=== PATIENT | female | born 1940 | race Caucasian/White ===

== ENCOUNTER → 2022-09-08 | Outpatient (CLI) | payer MEDICARE, BC ==
--- NOTE | 2022-09-08 16:19 | MR ---
EXAMINATION TYPE: MR brain wo con DATE OF EXAM: 09/08/2022 COMPARISON: NONE HISTORY: Memory loss. TECHNIQUE: Multiplanar, multisequence imaging of the brain and brainstem is performed without IV cont rast. FINDINGS: Diffusion weighted images demonstrate no evidence of a recent infarct or other diffusion abnormality. There is mild to moderate ventricular and sulcal prominence. There are scattered foci of T2 hyperinte nsity seen throughout the white matter bilaterally. Approximately 40-50 scattered lesions are seen. L esions are nonspecific in appearance and distribution. Midline structures demonstrate empty sella morphology. The craniocervical junction appears within no rmal limits. Normal vascular flow voids are present. The visualized sinuses are clear and the globes are intact. IMPRESSION: Mild to moderate diffuse cerebral atrophy and moderate chronic small vessel ischemic mittal ge.
== END | disposition home or self-care (01) ==
LOC: RADMRIMAIN 14:24
PROVIDERS: ATTEND Psychiatry & Neurology Neurology
DX: I67.82 Cerebral ischemia (principal); G31.9 Degenerative disease of nervous system, unspecified
CPT/HCPCS: 70551; 82306; 82607; 84207

== ENCOUNTER 2024-08-25 21:54 | Emergency (ER) | payer MEDICARE, BC ==
[2024-08-25 22:00] VITALS: TEMP 97.9
--- NOTE | 2024-08-25 22:14 | ED ---
Abdominal Pain HPI - General Chief Complaint: Urogenital Stated Complaint: pelvic pain Time Seen by Provider: 08/25/24 22:13 Source: patient, family, RN notes reviewed, old records reviewed Mode of arrival: wheelchair Limitations: no limitations, altered mental status, physical limitation - History of Present Illness Initial Comments: This is an 84 female with dementia. Patient presents today for evaluation abdominal pain has been telling failure members and complaining about abdominal pain for a day or 2 with difficult bowel movements. They are concerned for patient's inability to have a bowel movement and she is complaining of abdominal pain. No recent fevers nausea or vomiting noted. MD Complaint: abdominal pain -: days(s) Location: suprapubic Radiation: suprapubic Migration to: suprapubic Severity: moderate Severity scale (1-10): 5 Quality: aching Consistency: constant Improves With: nothing Worsens With: nothing Associated Symptoms: constipation Treatments Prior to Arrival: other - Related Data Allergies Allergy/AdvReac Type Severity Reaction Status Date / Time No Known Allergies Allergy Verified 08/25/24 22:00 Review of Systems ROS Statement: Those systems with pertinent positive or pertinent negative responses have been documented in the HPI. ROS Other: All systems not noted in ROS Statement are negative. Past Medical History Past Medical History: Dementia History of Any Multi-Drug Resistant Organisms: None Reported Past Surgical History: No Surgical Hx Reported Past Psychological History: No Psychological Hx Reported Smoking Status: Never smoker Past Alcohol Use History: None Reported Past Drug Use History: None Reported General Exam Limitations: no limitations General appearance: alert, in no apparent distress Head exam: Present: atraumatic, normocephalic, normal inspection Eye exam: Present: normal appearance, PERRL, EOMI. Absent: scleral icterus, conjunctival injection, periorbital swelling ENT exam: Present: normal exam, mucous membranes moist Neck exam: Present: normal inspection. Absent: tenderness, meningismus, lymphadenopathy Respiratory exam: Present: normal lung sounds bilaterally. Absent: respiratory distress, wheezes, rales, rhonchi, stridor Cardiovascular Exam: Present: regular rate, normal rhythm, normal heart sounds. Absent: systolic murmur, diastolic murmur, rubs, gallop, clicks GI/Abdominal exam: Present: soft, normal bowel sounds. Absent: distended, tenderness, guarding, rebound, rigid Extremities exam: Present: normal inspection, full ROM, normal capillary refill. Absent: tenderness, pedal edema, joint swelling, calf tenderness Back exam: Present: normal inspection Neurological exam: Present: alert, oriented X3, CN II-XII intact Psychiatric exam: Present: normal affect, normal mood Skin exam: Present: warm, dry, intact, normal color. Absent: rash Course Vital Signs 08/25/24 08/26/24 21:56 01:11 Temperature 97.9 F Pulse Rate 80 72 Respiratory 18 16 Rate Blood Pressure 173/95 161/83 O2 Sat by Pulse 98 95 Oximetry - Reevaluation(s) Reevaluation #1: 08/26/24 00:48 Medical records reviewed Reevaluation #2: 08/26/24 00:48 Patient has adequate bowel movement here in the ER Reevaluation #3: 08/26/24 00:48 Patient informed of results questions answered Reevaluation #4: Was pt. sent in by a medical professional or institution (, PA, BUSINESS OPERATIONS COORDINATOR, urgent care, hospital, or correction...) When possible be specific @ -no Did you speak to anyone other than the patient for history (EMS, parent, family, police, friend...)? What history was obtained from this source @ -no Did you review nursing and triage notes (agree or disagree)? Why? @ -agree Are old charts reviewed (outside hosp., previous admission, EMS record, old EKG, old radiological studies, urgent care reports/EKG's, correction records)? Report findings @ -yes Differential Diagnosis (chest pain, altered mental status, abdominal pain women, abdominal pain men, vaginal bleeding, weakness, fever, dyspnea, syncope, headache, dizziness, GI bleed, back pain, seizure, CVA, palpatations, mental health, musculoskeletal)? @ -prior EKG interpreted by me (3pts min.). @ -no X-rays interpreted by me (1pt min.). @ -no CT interpreted by me (1pt min.). @ -Yes positive fecal retention U/S interpreted by me (1pt. min.). @ -no What testing was considered but not performed or refused? (CT, X-rays, U/S, labs)? Why? @ -none What meds were considered but not given or refused? Why? @ -none Did you discuss the management of the patient with other professionals (professionals i.e. , PA, BUSINESS OPERATIONS COORDINATOR, lab, RT, psych nurse, social welfare research worker, proof inspector, teacher, airline pilot/first officer, shoe caser)? Give summary @ -no Was smoking cessation discussed for >3mins.? @ -no Was critical care preformed (if so, how long)? @ -no Were there social determinants of health that impacted care today? How? (Homelessness, low income, unemployed, alcoholism, drug addiction, transportation, low edu. Level, literacy, decrease access to med. care, senior care, rehab)? @ -none Was there de-escalation of care discussed even if they declined (Discuss DNR or withdrawal of care, Hospice)? DNR status @ -no What co-morbidities impacted this encounter? (DM, HTN, Smoking, COPD, CAD, Cancer, CVA, ARF, Chemo, Hep., AIDS, mental health diagnosis, sleep apnea, morbid obesity)? @ -none Was patient admitted / discharged? Hospital course, mention meds given and route, prescriptions, significant lab abnormalities, going to OR and other pertinent info. @ - 84 female to ER for evaluation of suprapubic and abdominal pain mild fecal retention given bowel regimen here in the ER has bowel movement here in the emergency department and can be discharged home Discharge Undiagnosed new problem with uncertain prognosis? @ -no Drug Therapy requiring intensive monitoring for toxicity (Heparin, Nitro, Insulin, Cardizem)? @ -no Were any procedures done? @ -no Diagnosis/symptom? @ -constipation fecal retention Acute, or Chronic, or Acute on Chronic? @ -Acute Uncomplicated (without systemic symptoms) or Complicated (systemic symptoms)? @ -Complicated Side effects of treatment? @ -no Exacerbation, Progression, or Severe Exacerbation? @ -exacerbation Poses a threat to life or bodily function? How? (Chest pain, [place], [place], pneumonia, PE, COPD, DKA, ARF, appy, cholecystitis, CVA, Diverticulitis, Homicidal, Suicidal, threat to staff... and all critical care pts) @ -yes yes extremes of age Reevaluation #5: Differential Abdominal Pain Women: Appendicitis, Cholecystitis, diverticulosis, ischemic bowel, pancreatitis, hepatitis, UTI, gastroenteritis, AAA, incarcerated hernia, bowel obstruction, constipation, inflammatory bowel, hepatitis, peptic ulcer disease, splenic infarction, perforated viscus, vulvitis, ovarian torsion, PID, kidney stone, placenta abruption, this is not meant to be an all-inclusive list Medical Decision Making - Medical Decision Making 84 female to ER for evaluation of suprapubic and abdominal pain mild fecal retention given bowel regimen here in the ER has bowel movement here in the emergency department and can be discharged home - Radiology Data Radiology results: report reviewed (CT abdomen pelvis shows mild fecal retention), image reviewed Disposition Clinical Impression: Constipation, Fecal impaction in rectum Disposition: HOME SELF-CARE Condition: Good Instructions (If sedation given, give patient instructions): Constipation (ED), Obstipation (ED), Fleet Enema (ED) Is patient prescribed a controlled substance at d/c from ED?: No Referrals: Ethel Abraham PAC [REFERRING] - 1-2 days Time of Disposition: 00:30
[2024-08-26] MEDS: SENNOSIDES-DOCUSATE SODIUM 1 EACH TAB PO STA (00:20)
[2024-08-26] MEDS: GLYCERIN ADULT SUPPOSITORY 1 EACH RECTAL STA (01:04)
[2024-08-26] MEDS: NA PHOS,M-B/NA PHOS,DI-BA 133 ML ENEMA RECTAL ONE (01:11)
[2024-08-26 01:13] VITALS: BP 161/83; PULSE 72; RESP 16
--- NOTE | 2024-08-26 01:46 | CT ---
EXAM: CT Abdomen and Pelvis Without Intravenous Contrast CLINICAL HISTORY: ITS.REASON CT Reason: pain TECHNIQUE: Axial computed tomography images of the abdomen and pelvis without intravenous contrast. CTDI is 9.6 mGy and DLP is 511 mGy-cm. This CT exam was performed using one or more of the following dose reduction techniques: automated exposure control, adjustment of the mA and/or kV according to patient size, and/or use of iterative reconstruction technique. COMPARISON: No relevant prior studies available. FINDINGS: Lung bases: Unremarkable. No mass. No consolidation. Mediastinum: Mild-moderate hiatal hernia. ABDOMEN: Liver: Unremarkable. Gallbladder and bile ducts: Unremarkable. No calcified stones. No ductal dilation. Pancreas: Unremarkable. No ductal dilation. Spleen: Unremarkable. No splenomegaly. Adrenals: Unremarkable. No mass. Kidneys and ureters: Unremarkable. No obstructing stones. No hydronephrosis. Stomach and bowel: Mild fecal retention, correlate for constipation. Diverticulosis, without acute diverticulitis. No small bowel obstruction. No free intraperitoneal air. PELVIS: Appendix: No findings to suggest acute appendicitis. Bladder: Unremarkable. No stones. Reproductive: Hysterectomy. ABDOMEN and PELVIS: Intraperitoneal space: Unremarkable. No free air. No significant fluid collection. Bones/joints: Degenerative changes of the spine. No acute fracture. No dislocation. Grade 1 anterolisthesis of L5 on S1. No pars defects. Soft tissues: Unremarkable. Vasculature: Atherosclerotic changes of the aorta. No abdominal aortic aneurysm. Lymph nodes: Unremarkable. No enlarged lymph nodes. IMPRESSION: 1. Mild-moderate hiatal hernia. 2. Mild fecal retention, correlate for constipation. 3. Hysterectomy. 4. Diverticulosis, without acute diverticulitis. No small bowel obstruction. No free intraperitoneal air.
== END 2024-08-26 01:13 | disposition home or self-care (01) ==
LOC: EC 21:54
DX: K56.41 Fecal impaction (principal)
CPT/HCPCS: 74176; 99284

== ENCOUNTER 2024-10-09 09:45 | Emergency (ER) | payer MEDICARE, BC ==
[2024-10-09 09:50] VITALS: RESP 18
--- NOTE | 2024-10-09 10:04 | ED ---
General Adult HPI - General Chief complaint: Weakness Stated complaint: Weakness Time Seen by Provider: 10/09/24 09:47 Source: patient, EMS, RN notes reviewed Mode of arrival: EMS Limitations: no limitations - History of Present Illness Initial comments: Patient is a 84-year-old female present to the emergency department with family with concerns for weakness. Symptoms have been present the past 3 days. Decreased appetite. Weak all over, patient does have some discomfort left hip and lower back however does have chronic lower back problems. Patient has been slightly more confused than normal. Patient has had several falls. - Related Data Home Medications Medication Instructions Recorded Confirmed Donepezil [Aricept] 10 mg PO DAILY 10/09/24 10/09/24 Ketoconazole 2% Cream [Nizoral 2%] 1 applic TOPICAL BID PRN 10/09/24 10/09/24 Memantine [Namenda] 10 mg PO DAILY 10/09/24 10/09/24 Allergies Allergy/AdvReac Type Severity Reaction Status Date / Time No Known Allergies Allergy Verified 10/09/24 10:44 Review of Systems ROS Statement: Those systems with pertinent positive or pertinent negative responses have been documented in the HPI. ROS Other: All systems not noted in ROS Statement are negative. Constitutional: Denies: fever Eyes: Denies: eye pain ENT: Denies: ear pain Respiratory: Denies: cough Cardiovascular: Denies: chest pain Endocrine: Reports: fatigue Gastrointestinal: Denies: abdominal pain Musculoskeletal: Reports: as per HPI, back pain Skin: Denies: rash Neurological: Reports: as per HPI, weakness. Denies: headache Past Medical History Past Medical History: Dementia History of Any Multi-Drug Resistant Organisms: None Reported Past Surgical History: No Surgical Hx Reported Past Psychological History: No Psychological Hx Reported Smoking Status: Never smoker Past Alcohol Use History: None Reported Past Drug Use History: None Reported General Exam Limitations: no limitations General appearance: alert, in no apparent distress Head exam: Present: normocephalic Eye exam: Present: normal appearance, PERRL ENT exam: Present: normal oropharynx Neck exam: Present: normal inspection. Absent: tenderness Respiratory exam: Present: normal lung sounds bilaterally Cardiovascular Exam: Present: regular rate, normal rhythm GI/Abdominal exam: Present: soft. Absent: tenderness Extremities exam: Present: full ROM, tenderness (Mild tenderness left lateral hip) Back exam: Present: normal inspection. Absent: tenderness Neurological exam: Present: alert, CN II-XII intact Expanded Neurological exam: Present: protecting the airway Patient oriented to: Present: person, place. Absent: time Speech: Present: fluid speech Motor strength exam: RUE: 5, LUE: 5, RLE: 5, LLE: 4 (Limited by hip discomfort) Eye Response: (4) open spontaneously Motor Response: (6) obeys commands Verbal Response: (4) confused conversation Psychiatric exam: Present: normal affect, normal mood Skin exam: Present: normal color Course Vital Signs 10/09/24 10/09/24 09:47 12:06 Temperature 98.6 F 98.2 F Pulse Rate 80 58 L Respiratory 18 18 Rate Blood Pressure 185/94 155/87 O2 Sat by Pulse 96 98 Oximetry EKG Findings - EKG Results: EKG: interpreted by ERMD, sinus rhythm, normal axis, normal QRS, normal ST/T Medical Decision Making - Medical Decision Making Was pt. sent in by a medical professional or institution (, PA, RETAIL BUSINESS ANALYST, urgent care, hospital, or jail...) When possible be specific @ -No Did you speak to anyone other than the patient for history (EMS, parent, family, police, friend...)? What history was obtained from this source @ -Son is present helps provide history as patient is a poor historian and has history of dementia Did you review nursing and triage notes (agree or disagree)? Why? @ -I reviewed and agree with nursing and triage notes Were old charts reviewed (outside hosp., previous admission, EMS record, old EKG, old radiological studies, urgent care reports/EKG's, jail records)? Report findings @ -No old charts were reviewed Differential Diagnosis (chest pain, altered mental status, abdominal pain women, abdominal pain men, vaginal bleeding, weakness, fever, dyspnea, syncope, headache, dizziness, GI bleed, back pain, seizure, CVA, palpatations, mental health, musculoskeletal)? @ -Differential Weakness: Hypoglycemia, shock, sepsis, hyponatremia, anemia, infection, [place], ETOH, adverse medicine reaction, overdose, stroke, this is not meant to be an all-inclusive list. EKG interpreted by me (3pts min.). @ -As above X-rays interpreted by me (1pt min.). @ -Chest x-ray, lumbar x-ray, hip and pelvis x-ray without evidence of acute abnormality CT interpreted by me (1pt min.). @ -CT scan without acute abnormality U/S interpreted by me (1pt. min.). @ -None done What testing was considered but not performed or refused? (CT, X-rays, U/S, labs)? Why? @ -None What meds were considered but not given or refused? Why? @ -None Did you discuss the management of the patient with other professionals (professionals i.e. , PA, RETAIL BUSINESS ANALYST, lab, RT, psych nurse, social media analyst, educational resource coordinator, teacher, traffic officer, child support case officer)? Give summary @ -No Was smoking cessation discussed for >3mins.? @ -No Was critical care preformed (if so, how long)? @ -No Were there social determinants of health that impacted care today? How? (Homelessness, low income, unemployed, alcoholism, drug addiction, transportation, low edu. Level, literacy, decrease access to med. care, intermediate, rehab)? @ -No Was there de-escalation of care discussed even if they declined (Discuss DNR or withdrawal of care, Hospice)? DNR status @ -No What co-morbidities impacted this encounter? (DM, HTN, Smoking, COPD, CAD, Cancer, CVA, ARF, Chemo, Hep., AIDS, mental health diagnosis, sleep apnea, morbid obesity)? @ -None Was patient admitted / discharged? Hospital course, mention meds given and route, prescriptions, significant lab abnormalities, going to OR and other pertinent info. @ -Patient presents with generalized weakness and falls. Workup essentially unremarkable. Patient was provided some IV fluid. Patient reevaluated and resting comfortably in bed. Patient and family updated. Family would like to take patient home and continue to take care of her at home. There was discussion regarding placement however they will keep her at home at this time. counter supply worker in contact with them to help with additional supplies at home Undiagnosed new problem with uncertain prognosis? @ -No Drug Therapy requiring intensive monitoring for toxicity (Heparin, Nitro, Insulin, Cardizem)? @ -No Were any procedures done? @ -No Diagnosis/symptom? @ -Weakness Acute, or Chronic, or Acute on Chronic? @ -Acute Uncomplicated (without systemic symptoms) or Complicated (systemic symptoms)? @ -Default Side effects of treatment? @ -No Exacerbation, Progression, or Severe Exacerbation? @ -No Poses a threat to life or bodily function? How? (Chest pain, [place], [place], pneumonia, PE, COPD, DKA, ARF, appy, cholecystitis, CVA, Diverticulitis, Homicidal, Suicidal, threat to staff... and all critical care pts) @ -No - Lab Data Result diagrams: 10/09/24 10:02 10/09/24 10:02 Lab Results 10/09/24 10/09/24 10/09/24 Range/Units 10:02 10:02 10:02 WBC 7.21 (4.50-10.00) 10*3/uL RBC 4.39 (4.10-5.20) 10*6/uL Hgb 13.0 (12.0-15.0) g/dL Hct 39.5 (37.2-46.3) % MCV 90.0 (80.0-97.0) fL MCH 29.6 (27.0-32.0) pg MCHC 32.9 (32.0-37.0) g/dL Plt Count 280 (140-440) 10*3/uL MPV 9.9 (9.5-12.2) fL Immature Gran % (Auto) 0.1 % Neutrophils % 61.4 % Lymphocytes % 26.5 % Monocytes % 7.4 % Eosinophils % 3.9 % Basophils % 0.7 % Immature Gran # 0.01 (0.00-0.04) 10*3/uL Neutrophils # 4.43 (1.80-7.70) 10*3/uL Lymphocytes # 1.91 (0.90-5.00) 10*3/uL Monocytes # 0.53 (0.20-1.00) 10*3/uL Eosinophils # 0.28 (0.04-0.35) 10*3/uL Basophils # 0.05 (0.00-0.10) 10*3/uL PT 10.4 (10.0-12.5) sec INR 0.9 (<1.2) APTT 20.8 L (22.0-30.0) sec Sodium 137 (137-145) mmol/L Potassium 4.2 (3.5-5.1) mmol/L Chloride 102 (98-107) mmol/L Carbon Dioxide 25 (22-30) mmol/L Anion Gap 10 mmol/L BUN 31 H (7-17) mg/dL Creatinine 0.67 (0.52-1.04) mg/dL Est GFR (CKD-EPI)AfAm >90 (>60 ml/min/1.73 sqM) Est GFR (CKD-EPI)NonAf 80 (>60 ml/min/1.73 sqM) Glucose 92 (74-99) mg/dL POC Glucose (mg/dL) (70-110) mg/dL POC Glu [employer] ID Plasma Lactic Acid Amilcar (0.7-2.0) mmol/L Calcium 9.6 (8.4-10.2) mg/dL Magnesium 2.0 (1.6-2.3) mg/dL Total Bilirubin 1.1 (0.2-1.3) mg/dL AST 33 (14-36) U/L ALT 11 (4-34) U/L Alkaline Phosphatase 80 (38-126) U/L Troponin I (0.000-0.034) ng/mL Total Protein 7.3 (6.3-8.2) g/dL Albumin 3.9 (3.5-5.0) g/dL Urine Color Urine Appearance (Clear) Urine pH (5.0-8.0) Ur Specific [place] (1.001-1.035) Urine Protein (Negative) Urine Glucose (UA) (Negative) Urine Ketones (Negative) Urine Blood (Negative) Urine Nitrite (Negative) Urine Bilirubin (Negative) Urine Urobilinogen (<2.0) mg/dL Ur Leukocyte Esterase (Negative) Urine RBC (0-5) /hpf Urine WBC (0-5) /hpf Ur Squamous Epith Cells (0-4) /hpf Urine Bacteria (None) /hpf Urine Mucus (None) /hpf 10/09/24 10/09/24 10/09/24 Range/Units 10:02 10:02 10:11 WBC (4.50-10.00) 10*3/uL RBC (4.10-5.20) 10*6/uL Hgb (12.0-15.0) g/dL Hct (37.2-46.3) % MCV (80.0-97.0) fL MCH (27.0-32.0) pg MCHC (32.0-37.0) g/dL Plt Count (140-440) 10*3/uL MPV (9.5-12.2) fL Immature Gran % (Auto) % Neutrophils % % Lymphocytes % % Monocytes % % Eosinophils % % Basophils % % Immature Gran # (0.00-0.04) 10*3/uL Neutrophils # (1.80-7.70) 10*3/uL Lymphocytes # (0.90-5.00) 10*3/uL Monocytes # (0.20-1.00) 10*3/uL Eosinophils # (0.04-0.35) 10*3/uL Basophils # (0.00-0.10) 10*3/uL PT (10.0-12.5) sec INR (<1.2) APTT (22.0-30.0) sec Sodium (137-145) mmol/L Potassium (3.5-5.1) mmol/L Chloride (98-107) mmol/L Carbon Dioxide (22-30) mmol/L Anion Gap mmol/L BUN (7-17) mg/dL Creatinine (0.52-1.04) mg/dL Est GFR (CKD-EPI)AfAm (>60 ml/min/1.73 sqM) Est GFR (CKD-EPI)NonAf (>60 ml/min/1.73 sqM) Glucose (74-99) mg/dL POC Glucose (mg/dL) 106 (70-110) mg/dL POC Glu [employer] ID [facility] Plasma Lactic Acid Amilcar 1.1 (0.7-2.0) mmol/L Calcium (8.4-10.2) mg/dL Magnesium (1.6-2.3) mg/dL Total Bilirubin (0.2-1.3) mg/dL AST (14-36) U/L ALT (4-34) U/L Alkaline Phosphatase (38-126) U/L Troponin I <0.012 (0.000-0.034) ng/mL Total Protein (6.3-8.2) g/dL Albumin (3.5-5.0) g/dL Urine Color Urine Appearance (Clear) Urine pH (5.0-8.0) Ur Specific [place] (1.001-1.035) Urine Protein (Negative) Urine Glucose (UA) (Negative) Urine Ketones (Negative) Urine Blood (Negative) Urine Nitrite (Negative) Urine Bilirubin (Negative) Urine Urobilinogen (<2.0) mg/dL Ur Leukocyte Esterase (Negative) Urine RBC (0-5) /hpf Urine WBC (0-5) /hpf Ur Squamous Epith Cells (0-4) /hpf Urine Bacteria (None) /hpf Urine Mucus (None) /hpf 10/09/24 Range/Units 12:02 WBC (4.50-10.00) 10*3/uL RBC (4.10-5.20) 10*6/uL Hgb (12.0-15.0) g/dL Hct (37.2-46.3) % MCV (80.0-97.0) fL MCH (27.0-32.0) pg MCHC (32.0-37.0) g/dL Plt Count (140-440) 10*3/uL MPV (9.5-12.2) fL Immature Gran % (Auto) % Neutrophils % % Lymphocytes % % Monocytes % % Eosinophils % % Basophils % % Immature Gran # (0.00-0.04) 10*3/uL Neutrophils # (1.80-7.70) 10*3/uL Lymphocytes # (0.90-5.00) 10*3/uL Monocytes # (0.20-1.00) 10*3/uL Eosinophils # (0.04-0.35) 10*3/uL Basophils # (0.00-0.10) 10*3/uL PT (10.0-12.5) sec INR (<1.2) APTT (22.0-30.0) sec Sodium (137-145) mmol/L Potassium (3.5-5.1) mmol/L Chloride (98-107) mmol/L Carbon Dioxide (22-30) mmol/L Anion Gap mmol/L BUN (7-17) mg/dL Creatinine (0.52-1.04) mg/dL Est GFR (CKD-EPI)AfAm (>60 ml/min/1.73 sqM) Est GFR (CKD-EPI)NonAf (>60 ml/min/1.73 sqM) Glucose (74-99) mg/dL POC Glucose (mg/dL) (70-110) mg/dL POC Glu [employer] ID Plasma Lactic Acid Amilcar (0.7-2.0) mmol/L Calcium (8.4-10.2) mg/dL Magnesium (1.6-2.3) mg/dL Total Bilirubin (0.2-1.3) mg/dL AST (14-36) U/L ALT (4-34) U/L Alkaline Phosphatase (38-126) U/L Troponin I (0.000-0.034) ng/mL Total Protein (6.3-8.2) g/dL Albumin (3.5-5.0) g/dL Urine Color Light Yellow Urine Appearance Clear (Clear) Urine pH 6.0 (5.0-8.0) Ur Specific [place] 1.021 (1.001-1.035) Urine Protein Negative (Negative) Urine Glucose (UA) Negative (Negative) Urine Ketones 2+ H (Negative) Urine Blood Negative (Negative) Urine Nitrite Negative (Negative) Urine Bilirubin Negative (Negative) Urine Urobilinogen <2.0 (<2.0) mg/dL Ur Leukocyte Esterase Moderate H (Negative) Urine RBC 2 (0-5) /hpf Urine WBC 7 H (0-5) /hpf Ur Squamous Epith Cells 2 (0-4) /hpf Urine Bacteria Rare H (None) /hpf Urine Mucus Rare H (None) /hpf Disposition Clinical Impression: Weakness Disposition: HOME SELF-CARE Condition: Stable Instructions (If sedation given, give patient instructions): Weakness (ED) Additional Instructions: Please do follow-up with your primary care physician in the next couple of days for recheck. Return for increased weakness, fever, confusion, more falls, worsening symptoms or other concerns. Is patient prescribed a controlled substance at d/c from ED?: No Referrals: Stacie Sanchez MD [Primary Care Provider] - 1-2 days Forms: Adult Foster Intermediate List, Assisted Living Facilities, Personal Retort Load Expediter Time of Disposition: 13:02
[2024-10-09] MEDS: SODIUM CHLORIDE 0.9% 1,000 ML IV SCH (10:05)
[2024-10-09 10:13] LABS: Glucose,Whole Blood 106 mg/dL (70-110)
[2024-10-09 10:36] LABS: Basophils # (A) 0.05 10*3/uL (0.00-0.10); Basophils % (A) 0.7 %; Eosinophils # (A) 0.28 10*3/uL (0.04-0.35); Eosinophils % (A) 3.9 %; HCT 39.5 % (37.2-46.3); Lymphocytes # (A) 1.91 10*3/uL (0.90-5.00); Lymphocytes % (A) 26.5 %; MCH 29.6 pg (27.0-32.0); MCHC 32.9 g/dL (32.0-37.0); Mean Platelet Volume 9.9 fL (9.5-12.2); Monocytes # (A) 0.53 10*3/uL (0.20-1.00); Monocytes % (A) 7.4 %; Neutrophils # (A) 4.43 10*3/uL (1.80-7.70); Neutrophils % (A) 61.4 %; Platelet Count 280 10*3/uL (140-440); RBC 4.39 10*6/uL (4.10-5.20); RDW 13.8 % (11.5-14.5); WBC 7.21 10*3/uL (4.50-10.00)
[2024-10-09 10:49] LABS: ALT 11 U/L (4-34); African American GFR (CKD) >90 (>60 ml/min/1.73 sqM); Albumin 3.9 g/dL (3.5-5.0); Anion Gap 10 mmol/L; Blood Urea Nitrogen 31 mg/dL (7-17); Calcium 9.6 mg/dL (8.4-10.2); Carbon Dioxide 25 mmol/L (22-30); Chloride 102 mmol/L (98-107); Glucose 92 mg/dL (74-99); Non-African American GFR(CKD) 80 (>60 ml/min/1.73 sqM); Sodium 137 mmol/L (137-145); Total Bilirubin 1.1 mg/dL (0.2-1.3)
--- NOTE | 2024-10-09 10:51 | CT ---
EXAMINATION TYPE: CT brain wo con DATE OF EXAM: 10/09/2024 10:45 AM COMPARISON: None. CLINICAL INDICATION: Female, 84 years old with history of weakness, Weakness, Possible UTI, 4 falls o sathish last 2 days, Dementia, TECHNIQUE: Examination was done in axial plane without intravenous contrast. Coronal and sagittal r econstructions performed. CT DLP: 1097.9 mGycm, Automated exposure control for dose reduction was used. FINDINGS: There is no evidence of acute intracranial hemorrhage, acute ischemic changes, mass, mass-effect, or extra-axial fluid collection. There is no effacement of cerebral sulci or basal subarachnoid cister ns. There is no hydrocephalus. There is no midline shift. Craig-white matter distinction is preserv ed. Partially empty sella. Mild patchy white matter hypodensities in both cerebral hemispheres. Mild mucosal thickening right sphenoid sinus. Mastoid air cells well pneumatized. Orbits and globes a re intact. IMPRESSION: Mild patchy burden of chronic small vessel ischemic disease. No acute intracranial abnormality seen. [facility], , 10/09/2024 10:49 AM
[2024-10-09] MEDS: ACETAMINOPHEN IV (For NPO) 1,000 MG in EMPTY BAG 1 BAG IVPB STA (10:54)
--- NOTE | 2024-10-09 10:59 | XR ---
EXAMINATION TYPE: XR chest 2V DATE OF EXAM: 10/09/2024 10:54 AM COMPARISON: None. CLINICAL INDICATION: Female, 84 years old with history of Weakness: Shortness of breath TECHNIQUE: XR chest 2V views of the chest are obtained. FINDINGS: Scattered senescent parenchymal changes noted. Hyperinflation compatible with COPD. No evidence for infiltrate. No evidence for atelectasis. Heart size is stable. Mediastinal structures are stable and grossly unremarkable. No evidence for hilar prominence. Degenerative changes dorsal spine. IMPRESSION: 1. No evidence for acute pulmonary disease. [facility], , 10/09/2024 10:56 AM
[2024-10-09 11:03] LABS: AST 33 U/L (14-36); Alkaline Phosphatase 80 U/L (38-126); INR 0.9 (<1.2); Potassium 4.2 mmol/L (3.5-5.1); Prothrombin Time 10.4 sec (10.0-12.5); Total Protein 7.3 g/dL (6.3-8.2)
--- NOTE | 2024-10-09 11:09 | XR ---
EXAMINATION TYPE: XR lumbar spine 2 or 3V DATE OF EXAM: 10/09/2024 10:54 AM COMPARISON: None. CLINICAL INDICATION: Female, 84 years old with history of pain, TECHNIQUE: Frontal, lateral, and oblique images of the lumbar spine are obtained. FINDINGS: Grade 1 anterolisthesis L5 on S1 of 8 mm. Severe facet joint arthropathy. Moderate degenera tive narrowing at L5-S1. Fracture not visualized. IMPRESSION: Degenerative changes as noted. No evidence for fracture. [facility], , 10/09/2024 11:07 AM
--- NOTE | 2024-10-09 11:28 | XR ---
EXAMINATION TYPE: XR Hip LT and AP Pelvis DATE OF EXAM: 10/09/2024 10:54 AM COMPARISON: None. CLINICAL INDICATION: Female, 84 years old with history of pain, TECHNIQUE: A single AP view of the pelvis is obtained. Two views of the left hip are obtained. FINDINGS: There is no acute fracture/dislocation evident in the pelvis. The hip and sacroiliac joints appear s ymmetric and unremarkable. The overlying soft tissue appears unremarkable.Two views of left hip show no acute fracture or dislocation. No focal lytic or sclerotic lesion seen in the proximal left femu r. The overlying soft tissue is unremarkable. IMPRESSION: There is no acute fracture or dislocation in the pelvis or left hip. [facility], , 10/09/2024 11:25 AM
[2024-10-09 11:33] LABS: Partial Thromboplastin Time 20.8 sec (22.0-30.0)
[2024-10-09 12:07] VITALS: TEMP 98.2
[2024-10-09 12:12] LABS: Appearance,Urine Clear (Clear); Bacteria,Urine Rare /hpf; Bilirubin,Urine Negative (Negative); Blood,Urine Negative (Negative); Color,Urine Light Yellow; Glucose,Urine (UA) Negative (Negative); Ketones,Urine 2+ (Negative); Leukocyte Esterase,Urine Moderate (Negative); Mucus,Urine Rare /hpf; Nitrite,Urine Negative (Negative); Protein,Urine Negative (Negative); RBC,Urine 2 /hpf (0-5); Specific Gravity,Urine 1.021 (1.001-1.035); Squamous Epithelial Cell,Urine 2 /hpf (0-4); Urobilinogen,Urine <2.0 mg/dL (<2.0); WBC,Urine 7 /hpf (0-5)
[2024-10-09 13:14] VITALS: BP 155/47; PULSE 78
== END 2024-10-09 14:03 | disposition home or self-care (01) ==
LOC: EC 09:45
DX: R53.1 Weakness (principal)
CPT/HCPCS: 36415; 93005; 80053; 83605; 83735; 84484; 85025; 85610; 85730; 81001; 72100; 73502; 71046; 70450; 99285; 96365; 96361; J0131